=== PATIENT | female | born 1960 | race Caucasian/White ===

== ENCOUNTER → 2017-08-02 | Outpatient (CLI) | payer BC ==
--- NOTE | 2017-08-02 11:28 | DIAGNOSTIC IMAGING REPORT ---
R ANKLE MIN 3 VIEWS CLINICAL HISTORY: Right ankle pain. COMPARISON: None FINDINGS: Alignment of the right ankle is anatomic. Talar dome is intact. There is no acute fracture or suspicious osseous lesion. There is minimal posterior and plantar calcaneal spurring. Mild soft tissue swelling is present. IMPRESSION: 1. No acute fracture or dislocation of the right ankle. 2. Minimal posterior and plantar calcaneal spurring. 3. Mild soft tissue swelling. Electronically signed by: Jean Land M.D. 08/02/2017 11:26 AM Dictated Date/Time: 08/02/2017 11:26 AM
--- NOTE | 2017-08-02 11:30 | DIAGNOSTIC IMAGING REPORT ---
BILATERAL KNEE RADIOGRAPHS CLINICAL HISTORY: BILATERAL KNEE PAIN COMPARISON: None FINDINGS: Right knee: Alignment of the right knee is anatomic. There is mild medial compartment joint space narrowing within the right knee. Patellofemoral compartment joint space narrowing is noted with osteophytosis. No fracture or joint effusion is identified. Left knee: Alignment of left knee is anatomic. No fracture or joint effusion. A few suprapatellar calcific densities are noted. IMPRESSION: Right knee: 1. No acute fracture or joint effusion the right knee. 2. Mild to moderate osteoarthritis within the medial and patellofemoral compartments of the right knee. Left knee: 1. No acute fracture or joint effusion of the left knee. 2. Mild osteoarthritis within the medial compartment of the left knee and moderate osteoarthritis within the patellofemoral compartment of the left knee. Electronically signed by: Jean Land M.D. 08/02/2017 11:29 AM Dictated Date/Time: 08/02/2017 11:27 AM
== END | disposition home or self-care (01) ==
LOC: C.RDSM 15:15
PROVIDERS: ATTEND Internal Medicine
DX: M17.0 Bilateral primary osteoarthritis of knee (principal); M25.571 Pain in right ankle and joints of right foot; M77.31 Calcaneal spur, right foot

== ENCOUNTER → 2017-08-02 | Outpatient (CLI) | payer BC | END | disposition home or self-care (01) | LOC: C.LAB1850 12:06 | PROVIDERS: ATTEND Internal Medicine | DX: M25.561 Pain in right knee (principal); M25.571 Pain in right ankle and joints of right foot ==